=== PATIENT | female | born 1965 | race Caucasian/White ===

== ENCOUNTER 2018-05-04 23:31 | Emergency (ER) | payer OTHER ==
[2018-05-04 23:57] VITALS: BP 145/100; PULSE 58; TEMP 98.3; BMI 21.7
--- NOTE | 2018-05-05 00:15 | PDOC ---
History of Present Illness - General Chief Complaint: Chest Pain Stated Complaint: CHEST PAIN Time Seen by Provider: 05/05/18 00:13 History Source: Patient, Spouse Exam Limitations: No Limitations - History of Present Illness Initial Comments: Pt, with PMH of anxiety, presents to the ER from home with complaints of non- exertional R sided breast and chest wall pain, which woke her from sleep this morning. The pt states it is sharp, intermittent, and lasts for about a minute when it comes. It does not radiate to the arm, back, or face. It is worse with deep breaths, and is better when she is lying still, She does admit to some chills, but denies any association with nausea or vomiting. She denies any new exercise or lifting at work or home. The pt has takes no OCP, and has no clotting disorders or SOB. She denies fevers, nausea/vomiting, cough, abdominal pain, urinary symptoms, changes to BM, joint pain, or leg swelling. Pt received mammogram 6 months ago, which was normal, but was told prior she needed to get a mammogram done every 6 months. 05/05/18 06:35 Past History - Travel Traveled outside of the country in the last 30 days: No Close contact w/someone who was outside of country & ill: No - Past Medical History Allergies/Adverse Reactions: Allergies Allergy/AdvReac Type Severity Reaction Status Date / Time latex Allergy Verified 05/04/18 23:49 morphine Allergy Verified 05/04/18 23:49 oxycodone Allergy Verified 05/04/18 23:49 pseudoephedrine Allergy Verified 05/04/18 23:49 [From [facility]] Home Medications: Ambulatory Orders Clonazepam [Klonopin] 1 mg PO DAILY 05/05/18 COPD: No Diabetes: No HTN: No Hypercholesterolemia: No Psychiatric Problems: Yes (anxiety) - Family Disease History Family Disease History: Heart Disease: Father ([place], 72), Mother ([place], 60s) - Suicide/Smoking/Psychosocial Hx Smoking History: Never smoked Review of Systems - Review of Systems Able to Perform ROS?: Yes Is the patient limited Russian proficient: No Constitutional: Yes: Chills, Weight Stable. No: Diaphoresis, Fever, Loss of Appetite, Night Sweats, Weakness HEENTM: No: Blurred Vision, Double Vision, Nose Congestion, Hearing Loss, Difficulty Swallowing Respiratory: No: Cough, Orthopnea, Shortness of Breath, Wheezing, Productive cough Cardiac (ROS): Yes: Chest Pain (chest wall and breast pain). No: Edema, Irregular Heart Rate, Lightheadedness, Palpitations, Syncope, Chest Tightness ABD/GI: No: Abdominal Distended, Constipated, Diarrhea, Nausea, Poor Appetite, Poor Fluid Intake, Vomiting, Abdominal cramping : No: Burning, Dysuria, Frequency, Flank Pain, Hematuria, Pain, Urgency Musculoskeletal: No: Back Pain, Joint Pain, Muscle Pain, Muscle Weakness Integumentary: No: Pruritus, Rash Neurological: No: Headache, Numbness, Paresthesia, Seizure, Tingling, Weakness, Unsteady Gait, Ataxia, Dizziness Psychiatric: No: Sleep Pattern Change, Change in Appetite Endocrine: No: Excessive Sweating, Increased Urine, Change in Weight Hematologic/Lymphatic: No: Anemia, Blood Clots, Easy Bleeding All Other Systems: Reviewed and Negative *Physical Exam - Vital Signs Last Vital Signs Temp Pulse Resp BP Pulse Ox 98.3 F 58 L 18 145/100 99 05/04/18 23:46 05/04/18 23:46 05/04/18 23:46 05/04/18 23:46 05/04/18 23:46 - Physical Exam General Appearance: Yes: Nourished, Appropriately Dressed, Thin. No: Apparent Distress HEENT: positive: EOMI, GAYLE, Normal ENT Inspection, Normal Voice, Symmetrical, TMs Normal, Pharynx Normal, Hearing Grossly Normal. negative: Scleral Icterus ( R), Scleral Icterus (L), Pharyngeal Erythema, Tonsillar Exudate, Tonsillar Erythema, Nasal Congestion, Rhinorrhea, Hearing Decreased, TM Bulging, TM Dull, TM Erythema Neck: positive: Trachea midline, Normal Thyroid, Supple. negative: Tender, Rigid, Lymphadenopathy (R), Lymphadenopathy (L) Respiratory/Chest: positive: Chest Tender (tender over R breast. Slightly retracted nipple on R breast, no discharge expressed. Breast tenderness ~3' and 7' o'clock. Tender with deep inspiration.), Lungs Clear, Normal Breath Sounds. negative: Respiratory Distress, Accessory Muscle Use, Crackles, Stridor, Wheezing, Dullness Cardiovascular: positive: Regular Rhythm, Regular Rate (rate in 60s during exam and on ECG.), S1, S2. negative: Edema, JVD, Murmur Vascular Pulses: Carotid (R): 4+, Carotid (L): 4+ Gastrointestinal/Abdominal: positive: Normal Bowel Sounds, Flat, Soft. negative : Tender, Organomegaly, Pulsatile Mass, Distended, Guarding, Rebound Rectal Exam: positive: deferred Lymphatic: negative: Adenopathy, Tenderness Musculoskeletal: positive: Normal Inspection. negative: CVA Tenderness Extremity: positive: Normal Capillary Refill, Normal Inspection, Normal Range of Motion, Pelvis Stable. negative: Tender, Delayed Capillary Refill, Pedal Edema Integumentary: positive: Normal Color, Dry, Warm. 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 Sosa. Pt complains of non-exertional R sided chest wall pain, which woke her from sleep this morning. It does not radiate to the arm or face. She does admit to some chills, but denies any association with nausea or vomiting. Breast exam today showed slight nipple retraction on the R compared to the L, with tenderness to palpation around 3' and 7' o'clock, with no nipple discharge. No rash seen on back or chest wall. Ordered CBC, CMP, trop, chest x-ray. Pending labs. Considering atypical chest pain/ACS vs breast cyst vs zoster. Low suspicion for PE, given no tachycardia, no OCP or clotting disorders, non- exertional, no SOB. More likely diagnosis is breast cyst considering focal tenderness on exam. No tearing chest pain or radiation to back. Pt received mammogram 6 months ago, which was normal, but was told prior she needed to get a mammogram done every 6 months. 05/05/18 01:10 Pt labs WNL, negative troponin. ECG NSR. HR 62 DC 136, QTC 430 Awaiting chest x-ray for dispo. Likely breast-related vs zoster 05/05/18 01:22 Pt lying comfortably. Awaiting chest x-ray. 05/05/18 01:52 Chest x-ray showed no acute changes. Read in ER with Dr. Neal. Pt provided strict return precautions with pt understanding. Pt will follow-up with primary care doctor. 05/05/18 02:38 *DC/Admit/Observation/Transfer Diagnosis at time of Disposition: Atypical chest pain, Mastalgia in female - Discharge Dispostion Disposition: HOME Condition at time of disposition: Improved Decision to Admit order: No - Referrals Referrals: Coco Goodman MD [Non Staff, Medical] - - Patient Instructions Printed Discharge Instructions: DI for Atypical Chest Pain, DI for Breast Pain (Mastalgia) Additional Instructions: You were seen in the ER for pain in your R breast and chest. The labs and chest x-ray showed no abnormalities. Please follow-up with your primary care doctor, Dr. Goodman, for further work-up and a possible breast ultrasound. You can continue taking Tylenol or Motrin for pain. Please return to the ER if you have worsening chest pain, pain in your left chest that radiates to your arm, jaw, or back, shortness of breath, or any other concerns. Print Language: YORUBA - Post Discharge Activity
[2018-05-05 00:33] LABS: BASO % 0.6 % (0-2.0); EOS % 2.1 % (0-4.5); HEMOGLOBIN 13.4 GM/dL (10.7-15.3); LYMPH % 43.4 % (8-40); MCH 30.4 pg (25.7-33.7); MCHC 34.4 g/dl (32.0-36.0); MEAN CELL VOLUME 88.6 fl (80-96); MEAN PLT VOLUME 8.1 fl (7.5-11.1); MONO % 7.7 % (3.8-10.2); NEUT % 46.2 % (42.8-82.8); PLATELET COUNT 233 K/MM3 (134-434); RDW 13.1 % (11.6-15.6); WHITE BLOOD COUNT 7.3 K/mm3 (4.0-10.0)
[2018-05-05] MEDS ORDERED: ACETAMINOPHEN 1000 MG/100 ML VIAL (NON FORMULARY) IVPB ONE (00:40)
[2018-05-05] MEDS ORDERED: ACETAMINOPHEN INJECTION 100 ML IVPB ONE (00:47)
[2018-05-05 00:57] LABS: ALBUMIN 3.9 g/dl (3.4-5.0); ANION GAP 5 MMOL/L (8-16); BILIRUBIN,TOTAL 0.2 mg/dL (0.2-1.0); BLOOD UREA NITROGEN 14 mg/dL (7-18); CALCIUM 8.6 mg/dL (8.5-10.1); CHLORIDE 106 mmol/L (98-107); CO2 31 mmol/L (21-32); CREATININE 0.9 mg/dL (0.55-1.02); GLUCOSE,RANDOM 94 mg/dL (74-106); POTASSIUM 3.8 mmol/L (3.5-5.1); SGOT/AST 16 U/L (15-37); SGPT/ALT 24 U/L (12-78); SODIUM 142 mmol/L (136-145); TOT PROT 7.3 g/dl (6.4-8.2)
[2018-05-05 01:00] LABS: ALK PHOS 108 U/L (45-117)
[2018-05-05] MEDS ORDERED: KETOROLAC TROMETHAMINE 30 MG/1 ML VIAL IM ONE (01:13)
[2018-05-05] MEDS ORDERED: KETOROLAC TROMETHAMINE 30 MG/1 ML VIAL IVPUSH ONE (01:14)
[2018-05-05] MEDS ORDERED: KETOROLAC TROMETHAMINE 30 MG/1 ML VIAL ONE (01:18)
--- NOTE | 2018-05-05 21:56 | EKG ---
Test Reason : Blood Pressure : / mmHG Vent. Rate : 062 BPM Atrial Rate : 062 BPM P-R Int : 136 ms QRS Dur : 084 ms QT Int : 424 ms P-R-T Axes : 023 007 011 degrees QTc Int : 430 ms NORMAL SINUS RHYTHM NORMAL ECG NO PREVIOUS ECGS AVAILABLE Confirmed by RUTH ANN RAND MD ([id number]) on 05/05/2018 9:56:43 PM Referred By: Confirmed By:RUTH ANN RAND MD
== END 2018-05-05 02:48 | disposition home or self-care (01) ==
LOC: JER 23:31
PROC: 3E033NZ Introduction of Analgesics, Hypnotics, Sedatives into Peripheral Vein, Percutaneous Approach (ICD-10-PCS; principal; 2018-05-04)
PROC: 3E0333Z Introduction of Anti-inflammatory into Peripheral Vein, Percutaneous Approach (ICD-10-PCS; 2018-05-04)
DX: R07.89 Other chest pain (principal); N64.4 Mastodynia
CPT/HCPCS: 36415; 71045-TC-FY; 80053; 84484; 85025; 93005; 93010; 96374; 96375; 99285-25; J0131

== ENCOUNTER 2018-09-13 10:16 | Emergency (ER) | payer OTHER ==
[2018-09-13 10:27] VITALS: BMI 21.7
[2018-09-13 11:27] LABS: URINE APPEARANCE CLEAR; URINE BILIRUBIN NEGATIVE (<2.0 mg/dL); URINE COLOR YELLOW; URINE GLUCOSE (UA) NEGATIVE (NEGATIVE); URINE KETONE 1+ (NEGATIVE); URINE LEUK ESTERASE NEGATIVE (NEGATIVE); URINE NITRITE NEGATIVE (NEGATIVE); URINE PROTEIN 1+ (NEGATIVE); URINE UROBILINOGEN NEGATIVE mg/dL (0.2-1.0)
[2018-09-13 11:32] LABS: EPI CELLS RARE /HPF (FEW); URINE MUCUS RARE
--- NOTE | 2018-09-13 11:40 | PDOC ---
History of Present Illness - General Chief Complaint: Pain, Acute Stated Complaint: FEVER Time Seen by Provider: 09/13/18 11:30 History Source: Patient Exam Limitations: Language Barrier - History of Present Illness Initial Comments: 53 yo F w a pmh of anxiety, kidney stones, gastritis, GERD presents with 2 days of subjective fevers up to 100.3, body aches and myalgias, a headache, and some chest discomfort. She says the chest discomfort is substernal and is not associated with nausea or diaphoresis. The pain comes on at rest. She has been taking 4 tylenol a day for her fevers and says it's been helping somewhat. She endorses random nausea but no emesis. She denies diarrhea or constipation. She also endorses left sided flank pain. She denies blurry vision, neck pain, abdominal pain, back pain, dysuria, frequency, or urgency. PCP: Maria De Jesus Lara PSH: Tubal ligation Allergies: latex, morphine, oxycodone, pseudoephedrine Social Hx: Denies smoking, drinking or other substance usage. Past History - Past Medical History Allergies/Adverse Reactions: Allergies Allergy/AdvReac Type Severity Reaction Status Date / Time latex Allergy Verified 09/13/18 10:21 morphine Allergy Verified 09/13/18 10:21 oxycodone Allergy Verified 09/13/18 10:21 pseudoephedrine Allergy Verified 09/13/18 10:21 [From [facility]] flu vaccine Allergy Uncoded 09/13/18 12:52 Home Medications: Ambulatory Orders Clonazepam [Klonopin] 1 mg PO DAILY 05/05/18 COPD: No Diabetes: No HTN: No Hypercholesterolemia: No Psychiatric Problems: Yes (anxiety) - Family Disease History Family Disease History: Heart Disease: Father ([place], 72), Mother ([place], 60s) - Suicide/Smoking/Psychosocial Hx Smoking History: Never smoked Review of Systems - Review of Systems Able to Perform ROS?: Yes Comments:: CONSTITUTIONAL: Present: fever, chills Absent: no fatigue EYES: Absent: visual changes ENT: Absent: ear pain, no sore throat CARDIOVASCULAR: Present: chest pain Absent: No palpitations RESPIRATORY: Present: cough, SOB GI: Present: nausea Absent: abdominal pain, no vomiting, no constipation, no diarrhea GENITOURINARY: Absent: dysuria, no frequency, no hematuria MUSKULOSKELETAL: Present: Myalgia Absent: back pain, no arthralgia SKIN: Absent: rash NEURO: Present: headache *Physical Exam - Vital Signs Last Vital Signs Temp Pulse Resp BP Pulse Ox 98.5 F 102 H 18 119/74 98 09/13/18 10:22 09/13/18 10:22 09/13/18 10:22 09/13/18 10:22 09/13/18 10:22 - Physical Exam Comments: GENERAL: Well-appearing, well-nourished. Moderate distress. HEENT: Normocephalic, atraumatic. PERRL, EOM intact. CARDIOVASCULAR: Normal S1, S2. Regular rate and rhythm. PULMONARY: Clear to auscultation bilaterally. ABDOMEN: Soft, non-distended, non-tender. EXTREMITIES: Normal ROM in all four extremities. No gross deformities. SKIN: Warm, dry. No rash NEUROLOGICAL: No focal neurological deficits. Moderate Sedation - Procedure Monitoring Vital Signs: Procedure Monitoring Vital Signs Temperature 98.5 F 09/13/18 10:22 Pulse Rate 102 H 09/13/18 10:22 Respiratory Rate 18 09/13/18 10:22 Blood Pressure 119/74 09/13/18 10:22 O2 Sat by Pulse Oximetry (%) 98 09/13/18 10:22 ED Treatment Course - LABORATORY CBC & Chemistry Diagram: 09/13/18 11:40 09/13/18 11:40 - ADDITIONAL ORDERS Additional order review: Laboratory Results 09/13/18 11:10 Urine Color Yellow Urine Appearance Clear Urine pH 5.0 Ur Specific [place] 1.027 Urine Protein 1+ H Urine Glucose (UA) Negative Urine Ketones 1+ H Urine Blood Negative Urine Nitrite Negative Urine Bilirubin Negative Urine Urobilinogen Negative Ur Leukocyte Esterase Negative Urine WBC (Auto) 2 Urine RBC (Auto) 1 Ur Epithelial Cells Rare Urine Mucus Rare Medical Decision Making - Medical Decision Making 53 yo F w a pmh of anxiety, kidney stones, gastritis, GERD presents with 2 days of subjective fevers up to 100.3, body aches and myalgias, a headache, and some chest discomfort. - Tachycardic - Warm to touch DDx IBNLT: Flu, PNA, URI, pneumothorax, UTI, renal colic, gastroenteritis. Plan: Labs, urine, flu swab, ekg, cxr, IV hydration, motrin, re-assess. Flu swab positive - Patient has the Flu. - Will DC with supportive management. *DC/Admit/Observation/Transfer Diagnosis at time of Disposition: Influenza A - Discharge Dispostion Disposition: HOME Condition at time of disposition: Stable Decision to Admit order: No - Referrals Referrals: [facility] [Provider Group] - Patient Instructions Printed Discharge Instructions: Alvaro Influenza, Influenza, Influenza Vaccine ( Alternative Therapy), How to Avoid a Cold or Flu Additional Instructions: You came into the ER with a fever, body aches, and muscle aches. We diagnosed you with the Flu from the nasal swab. Drink plenty of fluids. Take motrin, ibuprofen, advil and tylenol for pain control. Make sure to follow up with your primary care doctor in the next 3 to 5 days. Come back to the ER if your pain worsens, you can't breathe, start vomiting, or have any other new or worsening concerns. Thank you for coming to the [facility] ER. We hope you feel better soon! Print Language: ROMANIAN - Post Discharge Activity
[2018-09-13] MEDS ORDERED: SODIUM CHLORIDE 0.9% 500 ML INFUS.BAG IV ONE (11:41)
[2018-09-13] MEDS ORDERED: IBUPROFEN 600 MG TABLET (FP) PO ONE ×2 (11:42→12:33)
[2018-09-13 11:49] LABS: HCG,QUALITATIVE URINE Negative
--- NOTE | 2018-09-13 11:56 | PDOC ---
Attending Attestation - Resident Resident Name: JacksondeyaniraMigueTyrone - ED Attending Attestation I have performed the following: I have examined & evaluated the patient, The case was reviewed & discussed with the resident, I agree w/resident's findings & plan, Exceptions are as noted - HPI HPI: 09/13/18 11:59 53y F hx of anxiety, kdiney stones, gastritis, gerd, presenst with 3 days of body aches, fevers, chills, headaches, sharp cp, mild abd pain, some mild sneezing/coughing. pt taking tylenol at home with minimal improvement. pt denies any neck pain/stiffness, vision changes, photophobia, watkins, vomiting, diaphoresis, leg swelling, hemoptysis. no recent travel or sick contacts. pt also endorses occasional sharp cp not associated with breathing or exertion. - Physicial Exam PE: 09/13/18 12:15 GENERAL: The patient is awake, alert, and fully oriented, Nontoxic - in no acute distress. HEAD: Normocephalic, atraumatic. EYES: extraocular movements intact, sclera anicteric, conjunctiva clear. ENT: Normal voice, Moist mucous membranes. NECK: Normal range of motion, supple LUNGS: Breath sounds equal, clear to auscultation bilaterally. No wheezes, no rhonchi, no rales. HEART: Regular rhythm, slightly tachcyardic normal S1 and S2 without murmur, rub or gallop. ABDOMEN: Soft, nontender, normoactive bowel sounds. No guarding, no rebound. . No CVA tenderness EXTREMITIES: Normal range of motion, no edema. No clubbing or cyanosis. No cords, erythema, or tenderness. NEUROLOGICAL: No facial assymetry, Normal speech, PSYCH: Normal mood, normal affect. SKIN: hot to touch, Dry, normal turgor, - Medical Decision Making 09/13/18 12:15 suspect viral sndrome vs flu no signs or sypmtoms suggestive of acs no meningeal signs will ck labs, flu will give motrin, fluids, reglan for sypmtmoatic releif will reassesss 09/13/18 17:38 influenza positive will dc with supportive care at home return precautions were discussed Heart Score/ECG Review - ECG Impressions Comment:: 09/13/18 12:15 Twelve-lead EKG was performed and reviewed by me. There is normal sinus rhythm with a normal rate. Rate of 88 The axis is normal. Nonspecific ST-T wave changes
[2018-09-13 12:07] LABS: BASO % 0.4 % (0-2.0); HEMOGLOBIN 13.7 GM/dL (10.7-15.3); MCH 31.3 pg (25.7-33.7); MCHC 35.2 g/dl (32.0-36.0); MEAN CELL VOLUME 88.8 fl (80-96); MEAN PLT VOLUME 8.4 fl (7.5-11.1); MONO % 10.1 % (3.8-10.2); NEUT % 75.5 % (42.8-82.8); PLATELET COUNT 191 K/MM3 (134-434); RBC 4.39 M/mm3 (3.60-5.2); RDW 13.2 % (11.6-15.6); WHITE BLOOD COUNT 8.3 K/mm3 (4.0-10.0)
[2018-09-13] MEDS ORDERED: METOCLOPRAMIDE HCL INJECTION 10 MG/2 ML VIAL IVPUSH ONE (12:12)
[2018-09-13] MEDS ORDERED: METOCLOPRAMIDE HCL INJECTION 10 MG/2 ML VIAL ONE (12:34)
--- NOTE | 2018-09-13 12:35 | EKG ---
Test Reason : Blood Pressure : / mmHG Vent. Rate : 088 BPM Atrial Rate : 088 BPM P-R Int : 144 ms QRS Dur : 076 ms QT Int : 354 ms P-R-T Axes : 070 007 011 degrees QTc Int : 428 ms POOR DATA QUALITY, INTERPRETATION MAY BE ADVERSELY AFFECTED NORMAL SINUS RHYTHM POSSIBLE LEFT ATRIAL ENLARGEMENT NONSPECIFIC ST AND T WAVE ABNORMALITY ABNORMAL ECG WHEN COMPARED WITH ECG OF 04-MAY-2018 23:54, NO SIGNIFICANT CHANGE WAS FOUND Confirmed by RUTH ANN RAND MD ([id number]) on 09/13/2018 12:35:23 PM Referred By: Confirmed By:RUTH ANN RAND MD
[2018-09-13 12:46] LABS: ALBUMIN 3.8 g/dl (3.4-5.0); ALK PHOS 63 U/L (45-117); ANION GAP 8 MMOL/L (8-16); BILIRUBIN,TOTAL 0.5 mg/dL (0.2-1); BLOOD UREA NITROGEN 10 mg/dL (7-18); CALCIUM 8.7 mg/dL (8.5-10.1); CHLORIDE 103 mmol/L (98-107); CO2 29 mmol/L (21-32); CREATININE 0.9 mg/dL (0.55-1.3); GLUCOSE,RANDOM 88 mg/dL (74-106); POTASSIUM 3.7 mmol/L (3.5-5.1); SGOT/AST 24 U/L (15-37); SGPT/ALT 28 U/L (13-61); SODIUM 139 mmol/L (136-145)
[2018-09-13 13:48] VITALS: BP 116/65; PULSE 88; TEMP 100.1
== END 2018-09-13 13:49 | disposition home or self-care (01) ==
LOC: JER 10:16
DX: J09.X2 Influenza due to identified novel influenza A virus with other respiratory manifestations (principal)
CPT/HCPCS: 36415; 71046-TC-FY; 80053; 81003; 81015; 84484; 84703; 85025; 87086; 87804; 93005; 93010; 99283-25

== ENCOUNTER 2019-01-05 18:27 | Emergency (ER) | payer OTHER ==
[2019-01-05 18:36] VITALS: BP 157/94; PULSE 64; TEMP 97; BMI 21.7
--- NOTE | 2019-01-05 19:20 | PDOC ---
History of Present Illness - General Chief Complaint: Injury Stated Complaint: FALL/INJURY Time Seen by Provider: 01/05/19 18:46 History Source: Patient - History of Present Illness Occurred: reports: other Upper Extremity Pain Location: left: wrist Method of Injury: reports: fell Past History - Past Medical History Allergies/Adverse Reactions: Allergies Allergy/AdvReac Type Severity Reaction Status Date / Time latex Allergy Verified 01/05/19 18:36 morphine Allergy Verified 01/05/19 18:36 oxycodone Allergy Verified 01/05/19 18:36 pseudoephedrine Allergy Ver[facility] 01/05/19 18:36 [facility] flu vaccine Allergy Uncoded 01/05/19 18:36 Home Medications: Ambulatory Orders Clonazepam [Klonopin] 1 mg PO DAILY 05/05/18 Zolpidem Tartrate [Ambien] 10 mg PO ASDIR 01/05/19 COPD: No Diabetes: No HTN: No Hypercholesterolemia: No Psychiatric Problems: Yes (anxiety) - Family Disease History Family Disease History: Heart Disease: Father ([place], 72), Mother ([place], 60s) - Suicide/Smoking/Psychosocial Hx Smoking History: Never smoked Review of Systems - Review of Systems Musculoskeletal: Yes: Joint Pain. No: Joint Swelling Neurological: No: Headache, Dizziness *Physical Exam - Vital Signs Last Vital Signs Temp Pulse Resp BP Pulse Ox 97 F L 64 18 157/94 99 01/05/19 18:32 01/05/19 18:32 01/05/19 18:32 01/05/19 18:32 01/05/19 18:32 - Physical Exam General Appearance: Yes: Appropriately Dressed, Apparent Distress HEENT: positive: Normal Voice Respiratory/Chest: negative: Respiratory Distress Gastrointestinal/Abdominal: positive: Soft Extremity: positive: Tender (minimal ttp to radial aspect of R wrist, no snuffbox ttp, no swelling or deformity). negative: Swelling Integumentary: positive: Dry, Warm Neurologic: positive: Fully Oriented, Alert, Normal Mood/Affect ED Treatment Course - RADIOLOGY Radiology Studies Ordered: Category Date Time Status WRIST- RIGHT [RAD] Stat Radiology 01/05/19 19:13 Ordered Medical Decision Making - Medical Decision Making 01/05/19 19:14 53 yo M, no sig hx, here w/ continued L wrist pain s/p fall x 4 days at home after she tripped at home. States she hit back of head but no LOC, CASTELAN, dizziness , visual changes, n/v. Not on blood thinners. Denies any other injuries See exam M/l wrist sprain -XR pending 01/05/19 19:44 Xray wrist neg for fx. Dc w/ otc meds for pain. PMD f/u as needed *DC/Admit/Observation/Transfer Diagnosis at time of Disposition: Sprain of wrist Qualifiers: Encounter type: initial encounter Laterality: right Qualified Code(s): S63.501A - Unspecified sprain of right wrist, initial encounter - Discharge Dispostion Disposition: HOME Condition at time of disposition: Good - Referrals - Patient Instructions Printed Discharge Instructions: DI for Wrist Sprain - Post Discharge Activity
== END 2019-01-05 20:35 | disposition home or self-care (01) ==
LOC: JERFT 18:27
DX: S63.501A Unspecified sprain of right wrist, initial encounter (principal); W01.198A Fall on same level from slipping, tripping and stumbling with subsequent striking against other object, initial encounter; Y93.89 Activity, other specified; Y92.018 Other place in single-family (private) house as the place of occurrence of the external cause; Y99.8 Other external cause status
CPT/HCPCS: 73110-TC-RT-FY; 99281-25

== ENCOUNTER 2019-01-10 20:07 | Emergency (ER) | payer OTHER ==
--- NOTE | 2019-01-10 20:12 | PDOC ---
Rapid Medical Evaluation Time Seen by Provider: 01/10/19 20:09 Medical Evaluation: Allergies Allergy/AdvReac Type Severity Reaction Status Date / Time latex Allergy Verified 01/05/19 18:36 morphine Allergy Verified 01/05/19 18:36 oxycodone Allergy Verified 01/05/19 18:36 pseudoephedrine Allergy Verified 01/05/19 18:36 [From [facility]] flu vaccine Allergy Uncoded 01/05/19 18:36 01/10/19 20:09 HPI:R wrist fx orthopedic f/u too far away wants cast EXAM:R wrist tenderness at radical styloid and ulna styloid ORDERS: R wrist x-ray Discharge Disposition - Diagnosis Sprain of wrist - Referrals - Patient Instructions - Post Discharge Activity
[2019-01-10 20:18] VITALS: BP 144/81; PULSE 65; TEMP 98.1; BMI 28.3
--- NOTE | 2019-01-10 21:28 | PDOC ---
History of Present Illness - General Chief Complaint: Back Pain Stated Complaint: RT HAND PAIN Time Seen by Provider: 01/10/19 20:09 History Source: Patient Exam Limitations: No Limitations - History of Present Illness Initial Comments: 01/10/19 21:23 Chief complaint: Wrist fracture 53-year-old female with history of heart murmur, hypertension but is not required to take blood pressure medicine who states she was here 8 days ago and was called the next morning to be told that she had a wrist fracture. She states that she called the orthopedist last night and the visit was going to be too far in the future. Patient came here in hopes of getting a cast. Patient complaining of right wrist pain no other complaints. GENERAL/CONSTITUTIONAL: No fever, weakness. dizziness HEAD, EYES, EARS, NOSE AND THROAT: No change in vision. No ear pain or discharge. No sore throat. CARDIOVASCULAR: No chest pain RESPIRATORY: No shortness of breath or cough GASTROINTESTINAL: No pain, nausea, vomiting, diarrhea or constipation GENITOURINARY: No dysuria MUSCULOSKELETAL: No neck or back pain SKIN: No rash NEUROLOGIC: No headache, vertigo, loss of consciousness, or loss of sensation. GENERAL: The patient is awake, alert, and fully oriented, in no acute distress. HEAD: Normal with no signs of trauma. EYES: Pupils equal, round and reactive to light, sclera anicteric, conjunctiva clear. ENT: pharynx: no erythema, no exudate, uvula midline NECK: supple CHEST: clear, nontender, rr EXTREMITIES: Right wrist with mild swelling, tenderness, decreased range of motion secondary to pain, neurovascular intact. Rest of extremities, normal range of motion, no edema. NEUROLOGICAL: Normal speech, normal gait. SKIN: Warm, Dry Past History - Past Medical History Allergies/Adverse Reactions: Allergies Allergy/AdvReac Type Severity Reaction Status Date / Time latex Allergy Verified 01/05/19 18:36 morphine Allergy Verified 01/05/19 18:36 oxycodone Allergy Verified 01/05/19 18:36 pseudoephedrine Allergy Verified 01/05/19 18:36 [From [facility]] flu vaccine Allergy Uncoded 01/05/19 18:36 Home Medications: Ambulatory Orders Clonazepam [Klonopin] 1 mg PO DAILY 05/05/18 Zolpidem Tartrate [Ambien] 10 mg PO ASDIR 01/05/19 COPD: No Diabetes: No HTN: No Hypercholesterolemia: No Psychiatric Problems: Yes (anxiety) - Family Disease History Family Disease History: Heart Disease: Father ([place], 72), Mother ([place], 60s) - Suicide/Smoking/Psychosocial Hx Smoking History: Never smoked *Physical Exam - Vital Signs Last Vital Signs Temp Pulse Resp BP Pulse Ox 98.1 F 65 20 144/81 100 01/10/19 20:11 01/10/19 20:11 01/10/19 20:11 01/10/19 20:11 01/10/19 20:11 Procedures - Splinting Splint Location: Right: Wrist Pre-Proc Neuro Vasc Exam: normal Hand-Made Type: orthoglass Splint Type: Yes: Short Arm Post-Proc Neuro Vasc Exam: normal Eliud Bandage: yes, 3" Sling: No Complications: No Medical Decision Making - Medical Decision Making 01/10/19 21:26 Patient who fell over week ago, was seen in the ER and was told on January 06 she had a wrist fracture. Impacted radial fracture, nondisplaced seen on one view of the x-ray. Patient try to call orthopedist last night and was told there was good to be told to far in the future as per patient so she came to the ER in hopes of getting a splint. X-ray tonight does not show further concerns. Patient will be splinted and she was told she needs to see orthopedist. Discussed issues, findings, results, applicable medications and treatments and follow-up. All these were understood and all questions were answered *DC/Admit/Observation/Transfer Diagnosis at time of Disposition: Distal radial fracture Qualifiers: Encounter type: initial encounter Fracture type: closed Fracture morphology: unspecified fracture morphology Laterality: right Qualified Code(s): S52.501A - Unspecified fracture of the lower end of right radius, initial encounter for closed fracture - Discharge Dispostion Disposition: HOME Condition at time of disposition: Stable Decision to Admit order: No - Referrals Referrals: Ary Benjamin [Primary Care Provider] - Philippe Han MD [Staff Physician] - Yoni Kumari DO [Staff Physician] - - Patient Instructions Additional Instructions: Elevate, wear splint Call the orthopedist it is very important for you to see the orthopedist for proper treatment - Post Discharge Activity
== END 2019-01-10 21:41 | disposition home or self-care (01) ==
LOC: JERFT 20:07
PROC: 2W3CX1Z Immobilization of Right Lower Arm using Splint (ICD-10-PCS; principal; 2019-01-10)
DX: S52.501A Unspecified fracture of the lower end of right radius, initial encounter for closed fracture (principal); W18.39XA Other fall on same level, initial encounter; Y93.9 Activity, unspecified; Y92.9 Unspecified place or not applicable; I10 Essential (primary) hypertension; R01.1 Cardiac murmur, unspecified; F41.9 Anxiety disorder, unspecified
CPT/HCPCS: 29125; 73110-TC-RT-FY; 99282-25

== ENCOUNTER 2019-07-21 06:03 | Emergency (ER) | payer OTHER ==
[2019-07-21 06:49] VITALS: TEMP 97.9; BMI 21.9
[2019-07-21] MEDS ORDERED: SODIUM CHLORIDE 1,000 ML IV STA (07:28)
[2019-07-21] MEDS ORDERED: KETOROLAC TROMETHAMINE 15 MG/ML VIAL IVPUSH ONE (07:28)
[2019-07-21] MEDS ORDERED: ONDANSETRON 4 MG/2 ML VIAL IVPUSH ONE (07:28)
--- NOTE | 2019-07-21 07:29 | PDOC ---
History of Present Illness - General Chief Complaint: Nausea/Vomiting Stated Complaint: VOMITING Time Seen by Provider: 07/21/19 07:24 History Source: Patient Exam Limitations: No Limitations - History of Present Illness Initial Comments: 07/21/19 08:55 54 yo F with a hx of diverticulitis and nephrolithiasis presents to the emergency department with LLQ and left flank pain that began suddenly this morning at 4am. Per the patient, the pain is similar in quality to her pain when she gets kidney stones. Pain is 10/10, located in the left flank radiating to the LLQ, constant, sharp in nature, and denies aggravating and relieving factors. Per the patient, she has had 2x vomiting episodes without blood and bile. 2x diarrhea events. Endorses urinary urgency. Denies the following: fever, chills, SOB, chest pain, headaches, ears/nose/ throat pain, dysuria, hematuria, diarrhea, constipation, and back pain. Allergies: latex, morphine, oxycodone Social: Denies tobacco, alcohol, and substance abuse. PE: CVA on the left side. LLQ and LUQ tenderness. Past History - Past Medical History Allergies/Adverse Reactions: Allergies Allergy/AdvReac Type Severity Reaction Status Date / Time latex Allergy Verified 01/05/19 18:36 morphine Allergy Verified 01/05/19 18:36 oxycodone Allergy Verified 01/05/19 18:36 pseudoephedrine Allergy Verified 01/05/19 18:36 [[address] [facility]] flu vaccine Allergy Uncoded 01/05/19 18:36 COPD: No Diabetes: No HTN: No Hypercholesterolemia: No Psychiatric Problems: Yes (anxiety) - Psycho Social/Smoking Cessation Hx Smoking History: Never smoked *Physical Exam - Vital Signs Last Vital Signs Temp Pulse Resp BP Pulse Ox 97.9 F 63 18 126/77 98 07/21/19 06:30 07/21/19 06:30 07/21/19 06:30 07/21/19 06:30 07/21/19 06:30 ED Treatment Course - LABORATORY CBC & Chemistry Diagram: 07/21/19 07:15 07/21/19 07:15 Discharge - Discharge Information Problems reviewed: Yes Clinical Impression/Diagnosis: Abdominal pain Condition: Improved Disposition: HOME - Admission No - Follow up/Referral Referrals: Ary Benjamin [Primary Care Provider] - - Patient Discharge Instructions Patient Printed Discharge Instructions: DI for Diarrhea and Traveler's Diarrhea -- Adult, DI for Nausea -- Adult Additional Instructions: You were seen for the evaluation of your abdominal pain. Please follow up with your primary medical doctor within 1 week after discharge. Thank you. Please return to the emergency department if you have worsening pain or new concerning symptoms. thank you. - Post Discharge Activity Work/Back to School Note: Back to Work
[2019-07-21] MEDS ORDERED: ONDANSETRON 4 MG/2 ML VIAL ONE (07:48)
[2019-07-21] MEDS ORDERED: KETOROLAC TROMETHAMINE 30 MG/1 ML VIAL ONE (07:48)
[2019-07-21 08:30] LABS: BASO % 0.5 % (0-2.0); EOS % 2.1 % (0-4.5); HEMATOCRIT 41.7 % (32.4-45.2); HEMOGLOBIN 14.4 GM/dL (10.7-15.3); LYMPH % 20.5 % (8-40); MCH 30.2 pg (25.7-33.7); MCHC 34.5 g/dl (32.0-36.0); MEAN CELL VOLUME 87.4 fl (80-96); MEAN PLT VOLUME 8.6 fl (7.5-11.1); MONO % 4.5 % (3.8-10.2); NEUT % 72.4 % (42.8-82.8); PLATELET COUNT 250 K/MM3 (134-434); RBC 4.77 M/mm3 (3.60-5.2); RDW 14.2 % (11.6-15.6); WHITE BLOOD COUNT 5.5 K/mm3 (4.0-10.0)
[2019-07-21 08:40] LABS: ALBUMIN 4.1 g/dl (3.4-5.0); BILIRUBIN,TOTAL 0.5 mg/dL (0.2-1); BLOOD UREA NITROGEN 14.7 mg/dL (7-18); CALCIUM 10.1 mg/dL (8.5-10.1); HYALINE CASTS 2 /lpf (0-8); POTASSIUM 3.7 mmol/L (3.5-5.1); TOT PROT 7.3 g/dl (6.4-8.2); URINE APPEARANCE CLEAR; URINE BACTERIA 95.6 /hpf (NEGATIVE); URINE BILIRUBIN NEGATIVE (NEGATIVE); URINE COLOR YELLOW; URINE GLUCOSE (UA) NEGATIVE (NEGATIVE); URINE KETONE NEGATIVE (NEGATIVE); URINE LEUK ESTERASE TRACE (NEGATIVE); URINE NITRITE NEGATIVE (NEGATIVE); URINE PROTEIN NEGATIVE (NEGATIVE); URINE RBC 0 /hpf (0-4); URINE UROBILINOGEN 0.2 mg/dL (0.2-1.0); URINE WBC 3 /hpf (0-5)
[2019-07-21 08:43] LABS: LIPASE 261 U/L (73-393)
[2019-07-21 09:01] LABS: INR 1.05 (0.83-1.09); PROTHROMBIN TIME (PATIENT) 12.4 SEC (9.7-13.0)
[2019-07-21 09:04] LABS: ACTIVATED PTT 28.9 SECONDS (25.2-36.5)
--- NOTE | 2019-07-21 09:18 | PDOC ---
Attending Attestation - Resident Resident Name: Brian Bullard - ED Attending Attestation I have performed the following: I have examined & evaluated the patient, The case was reviewed & discussed with the resident, I agree w/resident's findings & plan - HPI HPI: 07/21/19 09:16 54-year-old female with history of kidney stones and diverticulitis presents with relatively acute onset of left lower quadrant/left flank pain at 3 AM, associated with nausea but no vomiting, loose nonbloody stool, urinary urgency with low volume but no gross hematuria or dysuria. No fevers or chills, no recent travel or sick contacts. States pain is similar to past kidney stone, presents for evaluation. - Physicial Exam PE: 07/21/19 09:16 Vital signs stable, afebrile Lying in stretcher, no acute distress No jaundice or pallor Heart is regular, lungs are clear Abdomen is soft/nondistended. Tender along the left mid abdomen, increased left CVA tenderness. No rash. No edema. - Medical Decision Making 07/21/19 09:17 54-year-old female with history of diverticulitis and renal colic presents with left abdomen/flank pain, some urinary and GI complaints. Exam seems to localize more to the left flank, hemodynamically stable. Labs are within normal limits including white count and lipase Urinalysis is also clear without blood Presentation could be more consistent with diverticulitis, renal colic is still on the differential Pain control CT of the abdomen and pelvis with contrast Reassess 07/21/19 12:38 CTAP without acute pathology, no evidence of diverticulitis or renal colic. GB findings not consistent with presentation (left sided pain, no RUQ ttp, nl LFTs , no leukocytosis). tolerated PO, abd benign, agrees with d/c plan and understands return criteria.
--- NOTE | 2019-07-21 10:00 | EKG ---
Test Reason : Blood Pressure : / mmHG Vent. Rate : 067 BPM Atrial Rate : 067 BPM P-R Int : 136 ms QRS Dur : 078 ms QT Int : 400 ms P-R-T Axes : 033 012 004 degrees QTc Int : 422 ms NORMAL SINUS RHYTHM NONSPECIFIC ST ABNORMALITY ABNORMAL ECG WHEN COMPARED WITH ECG OF 13-SEP-2018 12:00, NO SIGNIFICANT CHANGE WAS FOUND Confirmed by SHEILA JAY MD ([id number]) on 07/21/2019 10:00:16 AM Referred By: Confirmed By:SHEILA JAY MD
[2019-07-21] MEDS ORDERED: ACETAMINOPHEN 325 MG TABLET (FP) PO ONE (11:27)
[2019-07-21] MEDS ORDERED: ACETAMINOPHEN 325 MG TABLET (FP) ONE (12:06)
[2019-07-21 13:02] VITALS: BP 120/70; PULSE 72
== END 2019-07-21 13:01 | disposition home or self-care (01) ==
LOC: JER 06:03
PROC: 3E033GC Introduction of Other Therapeutic Substance into Peripheral Vein, Percutaneous Approach (ICD-10-PCS; principal; 2019-07-21)
PROC: 3E0333Z Introduction of Anti-inflammatory into Peripheral Vein, Percutaneous Approach (ICD-10-PCS; 2019-07-21)
DX: R10.9 Unspecified abdominal pain (principal); Z87.442 Personal history of urinary calculi; Z87.19 Personal history of other diseases of the digestive system
CPT/HCPCS: 36415; 74177-TC; 80053; 81003; 82550; 83690; 84484; 85025; 85610; 85730; 87086; 93005; 93010; 96374; 96375; 99285-25; J7030

== ENCOUNTER 2019-08-18 14:45 | Emergency (ER) | payer OTHER ==
[2019-08-18 14:57] VITALS: TEMP 97.8; BMI 23.4
--- NOTE | 2019-08-18 14:59 | PDOC ---
Rapid Medical Evaluation Time Seen by Provider: 08/18/19 14:53 Medical Evaluation: Allergies Allergy/AdvReac Type Severity Reaction Status Date / Time latex Allergy Verified 01/05/19 18:36 morphine Allergy Verified 01/05/19 18:36 oxycodone Allergy Verified 01/05/19 18:36 pseudoephedrine Allergy Verified 01/05/19 18:36 [From [facility]] flu vaccine Allergy Uncoded 01/05/19 18:36 08/18/19 14:53 Pt presents for evaluation of chest pain and headache. States that she had a brief episode of chest pain this morning at 9:30am that resolved quickly. She also admits to associated dizziness and headache. She states she does not have chest pain currently Exam: RRR, S1 S2 present. (-) M/R/G. Orders: labs, EKG Pt to proceed to the ER for further evaluation Discharge Disposition - Diagnosis Chest pain Qualifiers: Chest pain type: unspecified Qualified Code(s): R07.9 - Chest pain, unspecified - Referrals - Patient Instructions - Post Discharge Activity
--- NOTE | 2019-08-18 15:39 | PDOC ---
History of Present Illness - General Chief Complaint: Chest Pain Stated Complaint: CHEST PAIN Time Seen by Provider: 08/18/19 14:53 History Source: Patient - History of Present Illness Presenting Symptoms: Chest Pain Timing/Duration: reports: resolved prior to arrival Past History - Past Medical History Allergies/Adverse Reactions: Allergies Allergy/AdvReac Type Severity Reaction Status Date / Time latex Allergy Verified 08/18/19 14:57 morphine Allergy Verified 08/18/19 14:57 oxycodone Allergy Verified 08/18/19 14:57 pseudoephedrine Allergy Verified 08/18/19 14:57 [From [facility]] flu vaccine Allergy Uncoded 08/18/19 14:57 COPD: No Diabetes: No HTN: No Hypercholesterolemia: Yes Psychiatric Problems: Yes (anxiety) - Immunization History Immunization Up to Date: Yes - Psycho Social/Smoking Cessation Hx Smoking History: Never smoked Hx Alcohol Use: No Drug/Substance Use Hx: No Review of Systems - Review of Systems Constitutional: No: Fever Respiratory: No: Shortness of Breath Cardiac (ROS): Yes: Chest Pain. No: Lightheadedness, Palpitations, Syncope ABD/GI: No: Nausea, Vomiting *Physical Exam - Vital Signs Last Vital Signs Temp Pulse Resp BP Pulse Ox 97.8 F 79 18 149/83 98 08/18/19 14:53 08/18/19 21:00 08/18/19 21:00 08/18/19 21:00 08/18/19 21:00 - Physical Exam General Appearance: Yes: Appropriately Dressed. No: Apparent Distress HEENT: positive: Normal Voice Neck: positive: Supple Respiratory/Chest: positive: Lungs Clear, Normal Breath Sounds. negative: Respiratory Distress Cardiovascular: positive: Regular Rate, S1, S2 Gastrointestinal/Abdominal: positive: Soft. negative: Tender Integumentary: positive: Dry, Warm Neurologic: positive: Fully Oriented, Alert, Normal Mood/Affect Heart Score/ECG Review - History History: Slightly suspicious - Electrocardiogram EKG: Normal - Age Age: 45-65 - Risk Factors Risk Factors Heart Score: Yes Positive family hx of cardiac disease Based on the list above the patient has:: 1-2 risk factors - Troponin Troponin: </= normal limit - Score Heart Score - Total: 2 - ECG Intrepretation Comment:: 08/18/19 16:08 Twelve-lead EKG was performed and reviewed by me. There is normal sinus rhythm with a normal rate. The axis is normal. The intervals are normal. There are no ST or T wave abnormalities. Impression: Normal twelve-lead EKG ED Treatment Course - LABORATORY CBC & Chemistry Diagram: 08/18/19 15:42 08/18/19 15:42 - ADDITIONAL ORDERS Additional order review: 08/18/19 15:42 RBC 4.88 MCV 89.4 MCHC 33.5 RDW 14.1 MPV 8.6 Neutrophils % 46.4 D Lymphocytes % 42.8 H D Monocytes % 8.3 D Eosinophils % 1.7 Basophils % 0.8 - Medications Given in the ED: ED Medications Discontinued Medications Generic Name Dose Route Start Last Admin Trade Name Freq PRN Reason Stop Dose Admin Acetaminophen 1,000 mg 08/18/19 20:49 08/18/19 21:52 Tylenol - PO 08/18/19 20:50 Not Given ONCE ONE Medical Decision Making - Medical Decision Making 08/18/19 15:37 54 yo F, h/o insomnia, heart murmur, here w/ CP this am that has since resolved. CP started ~9am when pt awoke today and was attempting to get out of bed. Unable to describe pain, 5-6 out of 10, lasted for 10 minutes with no exacerbating factors and has since resolved. Possible nausea and dizziness but no SOB. States she has had similar CP in the past and has been evaluated in the ED w/ no clear dx per pt. Per pt's , patient has had "tests for her heart" in the past but unclear if had stress test done.Pt states she has a significant fmhx of cardiac disease so is concerned whenever she has chest pain per pt. see exam CP Recurrent Since resolved No cardiac hx but sig fmhx Exam wnl -EKG and serial trops -anticipate discharge 08/18/19 19:00 EKG and 1st trop neg. Signed out to ANUJA Richard pending 2nd trop Discharge - Discharge Information Problems reviewed: Yes Clinical Impression/Diagnosis: Chest pain Qualifiers: Chest pain type: unspecified Qualified Code(s): R07.9 - Chest pain, unspecified Condition: Good Disposition: HOME - Follow up/Referral Referrals: Ary Benjamin [Primary Care Provider] - Alan Kemp MD [Staff Physician] - Call tomorrow - Patient Discharge Instructions Patient Printed Discharge Instructions: DI for Atypical Chest Pain Additional Instructions: The cause of your chest pain is unclear at this time but your labs and EKG were normal here Please follow-up with your PMD to discuss out-patient stress test as discussed Please return for any worsening of symptoms - Post Discharge Activity Work/Back to School Note: Back to Work
[2019-08-18 16:03] LABS: BASO % 0.8 % (0-2.0); EOS % 1.7 % (0-4.5); HEMATOCRIT 43.6 % (32.4-45.2); HEMOGLOBIN 14.6 GM/dL (10.7-15.3); LYMPH % 42.8 % (8-40); MCH 29.9 pg (25.7-33.7); MCHC 33.5 g/dl (32.0-36.0); MEAN CELL VOLUME 89.4 fl (80-96); MEAN PLT VOLUME 8.6 fl (7.5-11.1); MONO % 8.3 % (3.8-10.2); NEUT % 46.4 % (42.8-82.8); PLATELET COUNT 263 K/MM3 (134-434); RBC 4.88 M/mm3 (3.60-5.2); RDW 14.1 % (11.6-15.6); WHITE BLOOD COUNT 4.7 K/mm3 (4.0-10.0)
[2019-08-18 16:37] LABS: ALBUMIN 4.1 g/dl (3.4-5.0); BILIRUBIN,TOTAL 0.4 mg/dL (0.2-1); BLOOD UREA NITROGEN 13.6 mg/dL (7-18); CALCIUM 9.3 mg/dL (8.5-10.1); CREATININE 0.8 mg/dL (0.55-1.3); POTASSIUM 4.2 mmol/L (3.5-5.1); TOT PROT 7.5 g/dl (6.4-8.2)
[2019-08-18 16:38] LABS: INR 1.01 (0.83-1.09); PROTHROMBIN TIME (PATIENT) 11.9 SEC (9.7-13.0)
[2019-08-18] MEDS ORDERED: ACETAMINOPHEN 500 MG TABLET (FP) PO ONE (20:49)
--- NOTE | 2019-08-18 21:00 | PDOC ---
*Physical Exam - Vital Signs Last Vital Signs Temp Pulse Resp BP Pulse Ox 97.8 F 77 20 151/85 98 08/18/19 14:53 08/18/19 14:53 08/18/19 14:53 08/18/19 14:53 08/18/19 14:53 ED Treatment Course - LABORATORY CBC & Chemistry Diagram: 08/18/19 15:42 08/18/19 15:42 - ADDITIONAL ORDERS Additional order review: Laboratory Results 08/18/19 08/18/19 08/18/19 15:42 15:42 15:42 PT with INR 11.90 INR 1.01 Sodium 143 Potassium 4.2 Chloride 106 Carbon Dioxide 30 Anion Gap 7 L BUN 13.6 Creatinine 0.8 Est GFR (CKD-EPI)AfAm 97.55 Est GFR (CKD-EPI)NonAf 84.17 Random Glucose 89 Calcium 9.3 Total Bilirubin 0.4 AST 22 ALT 31 Alkaline Phosphatase 107 Creatine Kinase 101 Troponin I < 0.02 Total Protein 7.5 Albumin 4.1 08/18/19 15:42 RBC 4.88 MCV 89.4 MCHC 33.5 RDW 14.1 MPV 8.6 Neutrophils % 46.4 D Lymphocytes % 42.8 H D Monocytes % 8.3 D Eosinophils % 1.7 Basophils % 0.8 Medical Decision Making - Medical Decision Making second troponin negative patient reports feeling well. Discharge - Discharge Information Problems reviewed: Yes Clinical Impression/Diagnosis: Chest pain Qualifiers: Chest pain type: unspecified Qualified Code(s): R07.9 - Chest pain, unspecified Condition: Good Disposition: HOME - Follow up/Referral Referrals: Ary Benjamin [Primary Care Provider] - Alan Kemp MD [Staff Physician] - Call tomorrow - Patient Discharge Instructions Patient Printed Discharge Instructions: DI for Atypical Chest Pain Additional Instructions: The cause of your chest pain is unclear at this time but your labs and EKG were normal here Please follow-up with your PMD to discuss out-patient stress test as discussed Please return for any worsening of symptoms - Post Discharge Activity Work/Back to School Note: Back to Work
[2019-08-18] MEDS ORDERED: ACETAMINOPHEN 500 MG TABLET (FP) ONE (21:46)
[2019-08-19 03:00] VITALS: BP 149/83; PULSE 79
--- NOTE | 2019-08-19 09:07 | EKG ---
Test Reason : Blood Pressure : / mmHG Vent. Rate : 068 BPM Atrial Rate : 068 BPM P-R Int : 130 ms QRS Dur : 076 ms QT Int : 400 ms P-R-T Axes : 025 -05 012 degrees QTc Int : 425 ms NORMAL SINUS RHYTHM MINIMAL VOLTAGE CRITERIA FOR LVH, MAY BE NORMAL VARIANT BORDERLINE ECG WHEN COMPARED WITH ECG OF 18-AUG-2019 14:51, NO SIGNIFICANT CHANGE WAS FOUND Confirmed by Shashi Mock MD ([id number]) on 08/19/2019 9:07:00 AM Referred By: Confirmed By:Shashi Mock MD
== END 2019-08-18 21:53 | disposition home or self-care (01) ==
LOC: JER 14:45
DX: R07.9 Chest pain, unspecified (principal); R01.1 Cardiac murmur, unspecified; G47.00 Insomnia, unspecified; E78.00 Pure hypercholesterolemia, unspecified; F41.9 Anxiety disorder, unspecified; Z88.8 Allergy status to other drugs, medicaments and biological substances; Z88.5 Allergy status to narcotic agent; Z91.040 Latex allergy status
CPT/HCPCS: 36415; 71046-TC-FY; 80053; 82550; 84484; 85025; 85610; 93005; 93010; 99283-25

== ENCOUNTER 2020-04-18 23:55 | Emergency (ER) | payer OTHER ==
[2020-04-19 00:10] VITALS: TEMP 98.2; BMI 21.9
--- NOTE | 2020-04-19 01:05 | PDOC ---
Documentation entered by Leo Bernard SCRIBE, acting as scribe for Soo Richard MD. Soo Richard MD: This documentation has been prepared by the poonamibeLuis Aaron, SCRIBE, under my direction and personally reviewed by me in its entirety. I confirm that the documentation accurately reflects all work, treatment, procedures, and medical decision making performed by me. Attending Attestation - Resident Resident Name: Isidra Childress - ED Attending Attestation I have performed the following: I have examined & evaluated the patient, The case was reviewed & discussed with the resident, I agree w/resident's findings & plan, Exceptions are as noted - HPI HPI: 04/19/20 01:02 this 54 yo female p/w bilateral back pain,dysuria,nausea,rt leg pain 04/19/20 01:54 - Physicial Exam PE: 04/19/20 01:02 petite slender 54 yo female with b/l back pain,dysuria,nausea head ncat neck supple lungs cta b/l cvs [id number] abdomen no rebound, nontender rectal exam normal rectal tome, sensation intact skin warm and dry extremities no edema, pain on rt leg with leg raises bilateral low back pain neuro axox3, 04/19/20 01:30 - Medical Decision Making 04/19/20 01:08 PMH kidny stones,GERD PSH TL 04/19/20 01:08 diff diag includes sciatica,pyelonephritis ,kidney stones,radiculopathy plan pain meds, UA,cbc,comp 04/19/20 01:38 04/19/20 01:53 04/19/20 01:54 Discharge - Discharge Information Problems reviewed: Yes Clinical Impression/Diagnosis: Sciatic leg pain, Herniated disc Condition: Improved Disposition: HOME - Follow up/Referral Referrals: Sohan Tello MD [Staff Physician] - Sherwin Rodríguez MD, FAANS [Staff Physician] - Coco Goodman MD [Primary Care Provider] - - Patient Discharge Instructions Patient Printed Discharge Instructions: DI for Sciatica, DI for Herniated Disc Additional Instructions: Lo gandhi visto en el Departamento de Emergencias por dolor de espalda y piernas. Lo ms probable es que tenga citica y posiblemente chaparrita hernia de disco. Le hemos remitido a un neurocirujano y un neurlogo para chaparrita evaluacin y tratamiento adicionales. Llame a jocelyne oficinas por la maana para hacer citas de seguimiento dentro de 1 semana. Si siente dolor, puede bandar Tylenol o ibuprofeno derek se indica en el frasco del medicamento, rose marie no exceda los 3 g de ibuprofeno o 4 g de Tylenol al da. Regrese al Departamento de Emergencias de inmediato si experimenta incapacidad para caminar, incontinencia, entumecimiento, debilidad o cualquier otro sntoma nuevo o que empeora. You have been seen in the Emergency Department for your back and leg pain. You most likely have sciatica and possibly a herniated disc. We have given you a referral to a Neurosurgeon and a Neurologist for further evaluation and treatment. Call their offices in the morning to make follow-up appointments within 1 week. If you experience pain, you can take Tylenol or Ibuprofen as directed on the medication bottle, but do not exceed 3g of Ibuprofen or 4g of Tylenol a day. Return to the Emergency Department immediately if you experience inability to walk, incontinence, numbness, weakness, or any other new or worsening symptom. Print Language: DIVEHI - Post Discharge Activity
[2020-04-19] MEDS ORDERED: SODIUM CHLORIDE 0.9% 500 ML INFUS.BAG IV ONE (01:22)
--- NOTE | 2020-04-19 01:22 | PDOC ---
History of Present Illness - General Chief Complaint: Pain, Acute Stated Complaint: PAIN Time Seen by Provider: 04/19/20 00:12 Past History - Medical History Allergies/Adverse Reactions: Allergies Allergy/AdvReac Type Severity Reaction Status Date / Time latex Allergy Verified 04/19/20 00:10 morphine Allergy Verified 04/19/20 00:10 oxycodone Allergy Verified 04/19/20 00:10 pseudoephedrine Allergy Verified 04/19/20 00:10 [From [facility]] flu vaccine Allergy Uncoded 04/19/20 00:10 Home Medications: Ambulatory Orders NK [No Known Home Medication] 04/19/20 COPD: No Diabetes: No HTN: No Hypercholesterolemia: Yes Psychiatric Problems: Yes (anxiety) - Reproductive History Is Patient Now?: No - Immunization History Immunization Up to Date: Yes - Psycho-Social/Smoking History Smoking History: Never smoked Have you smoked in the past 12 months: No Information on smoking cessation initiated: No - Substance Abuse Hx (Audit-C & DAST Scrn) How often the patient has a drink containing alcohol: Never Score: In Men: 4 or > Positive; In Women: 3 or > Positive: 0 Screen Result (Pos requires Nsg. Audit-10AR): Negative In the last yr the pt used illegal drug/Rx for NonMed reason: No Score: Yes response is considered Positive: 0 Screen Result (Positive result requires Nsg. DAST-10): Negative *Physical Exam - Vital Signs Last Vital Signs Temp Pulse Resp BP Pulse Ox 98.2 F 61 18 143/83 98 04/19/20 00:04 04/19/20 00:04 04/19/20 00:04 04/19/20 00:04 04/19/20 00:04 ED Treatment Course - LABORATORY CBC & Chemistry Diagram: 04/19/20 01:20 04/19/20 01:20 Medical Decision Making - Medical Decision Making 04/19/20 01:35 HPI: 54yo F hx sleep disorder, psychiatric problems, hysterectomy, GERD, and kidney stones presents from home c/o 3 days gradual onset worsening b/l flank pain radiating down anterior thighs, worse with movement/walking, so bad unable to walk without assistance today. Only tried tylenol, last used at 2300. Endorses tingling in b/l feet. Endorses 1 wk urinary incontinence. Denies saddle anaesthesia, midline back pain, trauma, falls, IVDU, F/C, N/V, hx back pain, dysuria, hematuria, vision changes, headache. ROS: Constitutional: Negative for chills, fever, fatigue, diaphoresis. HENT: Negative for sore throat, rhinorrhea, congestion. Eyes: Negative for visual disturbance. Respiratory: Negative for shortness of breath, cough, and wheezing. Cardiovascular: Negative for chest pain, palpitations, and leg swelling. Gastrointestinal: Negative for abdominal pain, blood in stool, constipation, diarrhea, nausea, and vomiting. Genitourinary: Positive for flank pain, urinary incontinence. Negative for dysuria, and hematuria. Musculoskeletal: Positive for b/l flank pain radiating down anterior thighs. Negative for myalgias and neck pain. Skin: Negative for rash. Neurological: Positive for tingling in feet. Negative for light-headedness, d izziness, vertigo, syncope, weakness, numbness and headaches. Psychiatric/Behavioral: Negative for behavioral problems and confusion. PE: Gen: Alert, NAD, uncomfortable-appearing. HEENT: PERRL, EOMI, MMM, NCAT. No conjunctival pallor. Sclera are non-icteric. CV: Regular rate and rhythm. No murmurs, rubs, or gallops. PULM: No resp distress. CTAB, no wheezes, rales, or rhonchi. ABD: soft, NT/ND, no rebound tenderness or guarding, + b/l CVA tenderness. BACK: +b/l paraspinal ttp l-spine. No TTP of midline c/t/l-spine. No step-offs or deformities. R straight leg test positive. MSK: No bony deformities. 2+ pulses in all extremities. NEURO: AAOx3. PERRL. CN 2-12 intact. 5/5 strength in all extremities. Sensation to light touch intact in all extremities. No pronator drift. No dysmetria. No dysdiadochokinesia. No abnormal nystagmus. Rectal tone normal. EXTREMITIES: No cyanosis. No clubbing. No edema. No calf tenderness. PSYCH: Normal mood and thought pattern. SKIN: Warm and dry. Normal capillary refill. No rashes. No jaundice. MDM: 54yo F hx sleep disorder, psychiatric problems, hysterectomy, GERD, and kidney stones presents from home with 3 days gradual onset worsening b/l flank pain ra diating down anterior thighs, worse with movement/walking, so bad unable to walk without assistance today. Hemodynamically stable, afebrile, neurologically intact, R straight leg test positive, +b/l CVA vs flank TTP. Ddx: sciatica, UTI, pyelo, kidney stone, herniated disc, spinal fx, cord compression, bladder incontinence, MSK, metabolic derangement, anemia, infection -IVF -Pain management -CBC, CMP, UA -Dispo: pending w/u 04/19/20 02:53 Labs reviewed. No e/o UTI, hematuria, infection, or metabolic derangement. Mild improvement s/p IVF Refuses motrin and any morphine derivative due to stated allergy, already took tylenol -Lidoderm -CT L-spine 04/19/20 04:18 Pain better, sitting up, able to ambulate CT reviewed: L2-L3 disc bulging w/possible central/right paramedian herniated component indenting the canal Safe for d/c home w/neuro f/u. Return precautions given. Pt understands all disc harge instructions and all questions were answered. Discharge - Discharge Information Problems reviewed: Yes Clinical Impression/Diagnosis: Sciatic leg pain, Herniated disc Condition: Improved Disposition: HOME - Admission No - Follow up/Referral Referrals: Coco Goodman MD [Primary Care Provider] - Sherwin Rodríguez MD, FAANS [Staff Physician] - Sohan Tello MD [Staff Physician] - - Patient Discharge Instructions Patient Printed Discharge Instructions: DI for Sciatica, DI for Herniated Disc Additional Instructions: Lo gandhi visto en el Departamento de Emergencias por dolor de espalda y piernas. Lo ms probable es que tenga citica y posiblemente chaparrita hernia de disco. Le hemos remitido a un neurocirujano y un neurlogo para chaparrita evaluacin y tratamiento adicionales. Llame a jocelyne oficinas por la maana para hacer citas de seguimiento dentro de 1 semana. Si siente dolor, puede bandar Tylenol o ibuprofeno derek se indica en el frasco del medicamento, rose marie no exceda los 3 g de ibuprofeno o 4 g de Tylenol al da. Regrese al Departamento de Emergencias de inmediato si experimenta incapacidad para caminar, incontinencia, entumecimiento, debilidad o cualquier otro sntoma nuevo o que empeora. You have been seen in the Emergency Department for your back and leg pain. You most likely have sciatica and possibly a herniated disc. We have given you a referral to a Neurosurgeon and a Neurologist for further evaluation and treatment. Call their offices in the morning to make follow-up appointments within 1 week. If you experience pain, you can take Tylenol or Ibuprofen as directed on the medication bottle, but do not exceed 3g of Ibuprofen or 4g of Tylenol a day. Return to the Emergency Department immediately if you experience inability to walk, incontinence, numbness, weakness, or any other new or worsening symptom. Print Language: SLOVENIAN - Post Discharge Activity
[2020-04-19 01:53] LABS: BASO % 0.6 % (0-2.0); EOS % 2.7 % (0-4.5); HEMATOCRIT 39.1 % (32.4-45.2); HEMOGLOBIN 13.2 GM/dL (10.7-15.3); LYMPH % 56.7 % (8-40); MCHC 33.8 g/dl (32.0-36.0); MEAN CELL VOLUME 88.8 fl (80-96); MEAN PLT VOLUME 8.6 fl (7.5-11.1); MONO % 9.6 % (3.8-10.2); NEUT % 30.4 % (42.8-82.8); PLATELET COUNT 223 K/MM3 (134-434); RBC 4.41 M/mm3 (3.60-5.2); RDW 13.1 % (11.6-15.6); WHITE BLOOD COUNT 4.8 K/mm3 (4.0-10.0)
[2020-04-19 02:12] LABS: URINE APPEARANCE CLEAR; URINE BILIRUBIN NEGATIVE (NEGATIVE); URINE COLOR YELLOW; URINE GLUCOSE (UA) NEGATIVE (NEGATIVE); URINE KETONE NEGATIVE (NEGATIVE)
[2020-04-19 02:13] LABS: EPI CELLS 6 /uL (0-25.1); HYALINE CASTS 0 /uL (0-3.1); URINE BACTERIA 4 /uL (0-1359); URINE LEUK ESTERASE TRACE (NEGATIVE); URINE NITRITE NEGATIVE (NEGATIVE); URINE PROTEIN N (NEGATIVE); URINE RBC 4 /uL (0-23.9); URINE UROBILINOGEN 0.2 mg/dL (0.2-1.0); URINE WBC 8 /uL (0-25.8)
[2020-04-19 02:15] LABS: ALBUMIN 4.5 g/dl (3.4-5.0); BILIRUBIN,TOTAL 0.3 mg/dL (0.2-1); BLOOD UREA NITROGEN 7.6 mg/dL (7-18); CALCIUM 8.8 mg/dL (8.5-10.1); CREATININE 0.8 mg/dL (0.55-1.3); POTASSIUM 3.6 mmol/L (3.5-5.1)
[2020-04-19] MEDS ORDERED: LIDOCAINE 5% TOPICAL PATCH TP ONE (02:46)
[2020-04-19] MEDS ORDERED: IBUPROFEN 600 MG TABLET (FP) PO ONE ×2 (02:46→02:47)
[2020-04-19] MEDS ORDERED: LIDOCAINE 5% TOPICAL PATCH ONE (02:47)
[2020-04-19] MEDS ORDERED: ACETAMINOPHEN 500 MG TABLET (FP) PO ONE (04:24)
[2020-04-19] MEDS ORDERED: ACETAMINOPHEN 325 MG TABLET (FP) ONE (04:30)
[2020-04-19 04:41] VITALS: BP 141/80; PULSE 60
[2020-04-19] MEDS ORDERED: LIDOCAINE PATCH REMOVAL MC SCH (22:00)
== END 2020-04-19 04:46 | disposition home or self-care (01) ==
LOC: SUPCPDRO 23:55 → JER 23:55
DX: M54.31 Sciatica, right side (principal); M51.26 Other intervertebral disc displacement, lumbar region
CPT/HCPCS: 36415; 72131-TC; 80053; 81003; 85025; 87086; 99285-25